=== PATIENT | female | born 2005 | race American Indian/Alaskan Native ===

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

== ENCOUNTER 2023-09-05 12:46 | Emergency (ER) | payer MEDICAID, OTHER ==
[2023-09-05] MEDS ORDERED: Take Home: Acetaminophen/HYDROcodone 325-5 MG, 5 Tab Pack PO ONE (13:21)
[2023-09-05] MEDS ORDERED: Take Home: Clindamycin HCl 150 MG, 12 Cap Pack PO ONE (13:21)
== END 2023-09-05 13:39 | disposition home or self-care (01) ==
LOC: DL.ED 12:46
DX: G50.1 Atypical facial pain (principal); T81.41XA Infection following a procedure, superficial incisional surgical site, initial encounter
CPT/HCPCS: 99282; 99283; A9270-GY